=== PATIENT | female | born 1980 | race Two or more races ===

== ENCOUNTER 2021-02-22 00:21 | Emergency (ER) | payer OTHER ==
[~2021-02-22] VITALS: Ht 165.1 cm; Wt 99.0 kg
[2021-02-22] MEDS ORDERED: ACETAMINOPHEN 500 MG TABLET PO ONE (01:30)
[2021-02-22] MEDS ORDERED: FAMOTIDINE 20 MG TABLET PO ONE (01:30)
[2021-02-22] MEDS ORDERED: MAG HYDROX/AL HYDROX/SIMETH 30 ML SUSP UDCUP PO ONE (01:30)
[2021-02-22 02:01] LABS: BASOPHILS % (AUTO) 0.5 % (0.0-2.0); HEMATOCRIT 30.5 % (36-46); HEMOGLOBIN 9.7 g/dL (12.0-16.0); LYMPHOCYTES # (AUTO) 2.4 K/uL (1.0-4.8); LYMPHOCYTES % (AUTO) 29.2 % (22.0-44.0); MEAN CORPUSCULAR HEMOGLOBIN 24.1 pg (26.0-34.0); MEAN CORPUSCULAR HGB CONC 31.9 G/dL (31.0-37.0); MEAN CORPUSCULAR VOLUME 76 fL (80-100); MONOCYTES # (AUTO) 0.6 K/uL (0.1-1.0); MONOCYTES % (AUTO) 7.5 % (2.0-9.0); NEUTROPHILS % (AUTO) 61.8 % (40.0-70.0); PLATELET COUNT (AUTO) 290 K/uL (150-450); RED BLOOD CELL COUNT(AUTO) 4.04 MIL/uL (4.00-5.20)
[2021-02-22 02:10] LABS: ANION GAP 8 mmol/L (8-16); CALCIUM, TOTAL 8.1 mg/dL (8.8-10.5); CARBON DIOXIDE 24 mmol/L (22-29); CHLORIDE 106 mmol/L (98-107); CREATININE 0.79 mg/dL (0.60-1.30); GLOMERULAR FILTR. RATE CALC > 60 mL/min (>60); GLUCOSE,RANDOM 95 mg/dL (70-110); POTASSIUM 3.7 mmol/L (3.5-5.1); SODIUM SERUM 138 mmol/L (136-145); UREA NITROGEN, BLOOD 16 mg/dL (7-18)
[2021-02-22 02:29] LABS: B-TYPE NATRIURETIC PEPTIDE 18 pg/mL (0-100)
[2021-02-22 02:35] LABS: ALANINE AMINOTRANSFERASE 24 U/L (12-78); ALBUMIN 3.5 g/dL (3.4-5.0); ALKALINE PHOSPHATASE 82 U/L (46-116); ASPARTATE AMINOTRANSFERASE 30 U/L (15-37); BILIRUBIN,TOTAL 0.4 mg/dL (0.1-1.0); CREATINE KINASE, TOTAL ONLY 263 U/L (26-192); TOTAL PROTEIN, SERUM 7.6 g/dL (6.4-8.2)
[2021-02-22 02:57] LABS: COVID AG,FIA SOURCE NASOPHARYNGEAL
[2021-02-22 03:15] VITALS: BP 125/76
== END 2021-02-22 03:28 | disposition home or self-care (01) ==
LOC: EMS 00:24
DX: R07.9 Chest pain, unspecified (principal); R11.2 Nausea with vomiting, unspecified; I10 Essential (primary) hypertension; Z20.822 Contact with and (suspected) exposure to COVID-19
CPT/HCPCS: 71045; 80053; 82550; 83880; 84484; 85025; 93005; 99285; 36415-L1; 36415-TC

== ENCOUNTER 2023-06-04 13:58 | Inpatient (IN) | payer MEDICAID ==
[~2023-06-04] VITALS: Ht 165.1 cm; Wt 98.3 kg
[2023-06-04 20:15] VITALS: BP 128/87; PULSE 82; RESP 18; TEMP 97.6; O2SAT 98
[2023-06-04] MEDS ORDERED: PNEUMOCOCCAL VACCINE POLYVALENT 0.5 ML SYRINGE [PPSV23] IM. ONE (20:45)
[2023-06-04] MEDS ORDERED: INFLUENZA VIRUS VACCINE QVS 2023-24 (6MO+)/PF 60 MCG/0.5 ML SYRINGE IM. ONE (20:45)
[2023-06-04] MEDS: ZOLPIDEM TARTRATE 10 MG TABLET PO PRN (21:41)
[2023-06-04] MEDS: ACETAMINOPHEN 325 MG TABLET PO PRN (21:41)
[2023-06-04 22:41] VITALS: RESP 18
[2023-06-05 08:27] LABS: BASOPHILS % (AUTO) 0.3 % (0.0-2.0); EOSINOPHILS % (AUTO) 3.4 % (1.0-6.0); HEMATOCRIT 28.3 % (36-46); LYMPHOCYTES # (AUTO) 2.2 K/uL (1.0-4.8); LYMPHOCYTES % (AUTO) 40.1 % (22.0-44.0); MEAN CORPUSCULAR HEMOGLOBIN 23.2 pg (26.0-34.0); MEAN CORPUSCULAR HGB CONC 31.9 G/dL (31.0-37.0); MEAN CORPUSCULAR VOLUME 73 fL (80-100); MONOCYTES # (AUTO) 0.4 K/uL (0.1-1.0); MONOCYTES % (AUTO) 6.9 % (2.0-9.0); NEUTROPHILS # (AUTO) 2.7 K/uL (1.8-7.7); NEUTROPHILS % (AUTO) 49.3 % (40.0-70.0); PLATELET COUNT (AUTO) 355 K/uL (150-450); RED BLOOD CELL COUNT(AUTO) 3.89 MIL/uL (4.00-5.20); RED CELL DISTRIBUTION WIDTH 18.1 % (11.5-14.5); WHITE BLOOD COUNT (AUTO) 5.5 K/uL (4.5-11.0)
[2023-06-05 09:31] VITALS: BP 142/87; PULSE 93; RESP 18; TEMP 97.2; O2SAT 100
[2023-06-05 09:40] LABS: ALANINE AMINOTRANSFERASE 41 U/L (12-78); ALBUMIN 3.3 g/dL (3.4-5.0); ALKALINE PHOSPHATASE 77 U/L (46-116); ANION GAP 7 mmol/L (8-16); ASPARTATE AMINOTRANSFERASE 34 U/L (15-37); BILIRUBIN,TOTAL 0.2 mg/dL (0.1-1.0); CALCIUM, TOTAL 8.5 mg/dL (8.8-10.5); CARBON DIOXIDE 27 mmol/L (22-29); CHLORIDE 104 mmol/L (98-107); CHOL/HDL RATIO 3.7 (3.9-5.7); CHOLESTEROL 140 mg/dL (131-200); CREATININE 0.61 mg/dL (0.60-1.30); FREE T4 (FREE THYROXINE) 1.24 ng/dL (0.76-1.46); GLOMERULAR FILTR. RATE CALC > 60 mL/min (>60); GLUCOSE,RANDOM 91 mg/dL (70-110); HCG,QUANTITATIVE < 1 mIU/mL (0-6); HDL CHOLESTEROL 38 mg/dL (40-60); LDL CHOL (CALC.) 80 mg/dL (0-130); POTASSIUM 3.6 mmol/L (3.5-5.1); SODIUM SERUM 138 mmol/L (136-145); T4 (THYROXINE) 8.2 mcg/dL (4.7-13.3); THYROID STIMULATING HORMONE 1.44 uIU/mL (0.36-3.74); TOTAL PROTEIN, SERUM 7.6 g/dL (6.4-8.2); TRIGLYCERIDES 110 mg/dL (15-150); UREA NITROGEN, BLOOD 5 mg/dL (7-18)
[2023-06-05 10:25] LABS: RBC MORPHOLOGY COMMENT ABNORMAL RBC MORPH
[2023-06-05 11:22] LABS: HEMOGLOBIN A1C 5.5 % (3.8-5.6)
[2023-06-05] MEDS: HALOPERIDOL 5 MG TABLET PO PRN (14:42)
[2023-06-05] MEDS: ACETAMINOPHEN 325 MG TABLET PO PRN (14:42)
[2023-06-05] MEDS: LORazepam 2 MG TABLET PO PRN (14:42)
[2023-06-05] MEDS: BENZOCAINE/MENTHOL LOZENGE PO PRN ×2 (17:18→22:03)
[2023-06-05] MEDS: GuaiFENesin/D-METHORPHAN/PHENYLEPH 5 ML LIQUID ORAL.SYG PO PRN (17:25)
[2023-06-05 22:09] VITALS: BP 129/90; PULSE 83; RESP 17; TEMP 97.5; O2SAT 99
[2023-06-06] MEDS: DIVALPROEX SODIUM 500 MG DR TABLET PO SCH ×2 (08:15→16:08)
[2023-06-06] MEDS: LITHIUM CARBONATE 300 MG CAPSULE PO SCH ×2 (08:15→16:08)
[2023-06-06] MEDS: PARoxetine HCL 20 MG TABLET PO SCH (08:15)
[2023-06-06] MEDS: HALOPERIDOL 5 MG TABLET PO PRN ×2 (08:16→21:43)
[2023-06-06] MEDS: LORazepam 2 MG TABLET PO PRN ×2 (08:16→21:43)
[2023-06-06 09:07] LABS: HEPATITIS C AB (EIA) Non Reactive (Non Reactive)
[2023-06-06 09:11] VITALS: BP 132/79; PULSE 91; RESP 19; TEMP 97.8; O2SAT 96
[2023-06-06 20:31] VITALS: BP 137/90; PULSE 82; RESP 16; TEMP 97.1; O2SAT 98
[2023-06-06] MEDS ORDERED: OLANZapine 5 MG TABLET PO SCH (21:00)
[2023-06-06] MEDS: ZOLPIDEM TARTRATE 10 MG TABLET PO PRN (21:43)
[2023-06-07] MEDS: PARoxetine HCL 20 MG TABLET PO SCH (08:20)
[2023-06-07] MEDS: LITHIUM CARBONATE 300 MG CAPSULE PO SCH (08:20)
[2023-06-07] MEDS: DIVALPROEX SODIUM 500 MG DR TABLET PO SCH (08:20)
[2023-06-07 08:34] VITALS: RESP 18
[2023-06-07] MEDS: GuaiFENesin/D-METHORPHAN/PHENYLEPH 5 ML LIQUID ORAL.SYG PO PRN (08:37)
[2023-06-07 08:50] VITALS: RESP 17
[2023-06-07] MEDS: ACETAMINOPHEN 325 MG TABLET PO PRN (08:50)
[2023-06-07 09:50] VITALS: RESP 18
[2023-06-07] MEDS ORDERED: OLAN5TAB52 PO (13:40)
[2023-06-07] MEDS ORDERED: DIVA-112 PO (13:40)
[2023-06-07] MEDS ORDERED: LITH300C3 PO (13:43)
[2023-06-07] MEDS ORDERED: PARO-38 PO (13:43)
== END 2023-06-07 15:24 | disposition home or self-care (01) | DRG 750 ==
LOC: B2S 20:14
PROVIDERS: ADMIT Psychiatry & Neurology Psychiatry; ATTEND Psychiatry & Neurology Psychiatry
DX: F25.9 Schizoaffective disorder, unspecified (principal); R45.851 Suicidal ideations
CPT/HCPCS: 80053; 80061; 83036; 84436; 84439; 84443; 84702; 85025; 86592; 86803; 87340; 90686; 90732

== ENCOUNTER 2024-06-03 20:36 | Emergency (ER) | payer MEDICAID, OTHER ==
[~2024-06-03] VITALS: Ht 165.1 cm; Wt 97.3 kg
[~2024-06-03 20:36] MED LIST: DIVA-112 PO; LITH300C3 PO; OLAN5TAB52 PO; PARO-38 PO
[2024-06-03 20:52] VITALS: TEMP 98.7
[2024-06-03 23:10] LABS: BASOPHILS % (AUTO) 0.4 % (0.0-2.0); EOSINOPHILS % (AUTO) 1.6 % (1.0-6.0); HEMATOCRIT 29.8 % (36-46); HEMOGLOBIN 9.4 g/dL (12.0-16.0); LYMPHOCYTES # (AUTO) 2.4 K/uL (1.0-4.8); MEAN CORPUSCULAR HEMOGLOBIN 22.6 pg (26.0-34.0); MEAN CORPUSCULAR HGB CONC 31.4 G/dL (31.0-37.0); MEAN CORPUSCULAR VOLUME 72 fL (80-100); MONOCYTES # (AUTO) 0.4 K/uL (0.1-1.0); MONOCYTES % (AUTO) 7.5 % (2.0-9.0); NEUTROPHILS # (AUTO) 2.5 K/uL (1.8-7.7); NEUTROPHILS % (AUTO) 46.5 % (40.0-70.0); PLATELET COUNT (AUTO) 341 K/uL (150-450); RED BLOOD CELL COUNT(AUTO) 4.15 MIL/uL (4.00-5.20); RED CELL DISTRIBUTION WIDTH 15.9 % (11.5-14.5); WHITE BLOOD COUNT (AUTO) 5.4 K/uL (4.5-11.0)
[2024-06-03 23:19] LABS: ANION GAP 7 mmol/L (8-16); CALCIUM, TOTAL 8.7 mg/dL (8.8-10.5); CARBON DIOXIDE 28 mmol/L (22-29); CHLORIDE 101 mmol/L (98-107); CREATININE 0.81 mg/dL (0.60-1.30); GLOMERULAR FILTR. RATE CALC > 60 mL/min (>60); GLUCOSE,RANDOM 100 mg/dL (70-110); POTASSIUM 3.3 mmol/L (3.5-5.1); SODIUM SERUM 136 mmol/L (136-145); UREA NITROGEN, BLOOD 12 mg/dL (7-18)
[2024-06-03] MEDS: LORazepam 1 MG TABLET PO ONE (23:23)
[2024-06-03 23:27] LABS: TROPONIN I-HIGH SENSITIVITY 4 ng/L (<51)
[2024-06-03 23:28] LABS: RBC MORPHOLOGY COMMENT ABNORMAL RBC MORPH
[2024-06-03 23:38] LABS: B-TYPE NATRIURETIC PEPTIDE 50 pg/mL (0-100)
[2024-06-04 00:35] LABS: APPEARANCE,URINE CLEAR (CLEAR); BILIRUBIN,URINE NEGATIVE (NEGATIVE); COLOR,URINE YELLOW (YELLOW); GLUCOSE, URINE (UA) NEGATIVE (NEGATIVE); KETONES,URINE NEGATIVE (NEGATIVE); LEUKOCYTE ESTERASE ,URINE NEGATIVE (NEGATIVE); NITRATE,URINE NEGATIVE (NEGATIVE); OCCULT BLOOD,URINE NEGATIVE (NEGATIVE); PH,URINE 6.5 (5.0-8.0); PROTEIN,URINE TRACE mg/dL (NEGATIVE); SPECIFIC GRAVITIY, URINE 1.027 (1.003-1.030); UROBILINOGEN,URINE <=1.0 mg/dL (<=1.0)
[2024-06-04 01:28] VITALS: BP 158/81; PULSE 74; RESP 18; O2SAT 98
== END 2024-06-04 01:35 | disposition home or self-care (01) ==
LOC: EMS 20:36
DX: F41.9 Anxiety disorder, unspecified (principal); I10 Essential (primary) hypertension; R07.89 Other chest pain
CPT/HCPCS: 71045; 80048; 81003; 83880; 84484; 85025; 93005; 99285; 36415-L1; 36415-TC